=== PATIENT | female | born 1980 | race African-American/Black ===

== ENCOUNTER 2020-04-29 08:44 | Emergency (ER) | payer SELFPAY ==
--- NOTE | 2020-04-29 08:55 | NUR ---
called out to the lobby patient was not there
--- NOTE | 2020-04-29 09:19 | NUR ---
called no answer
--- NOTE | 2020-04-29 09:53 | Emergency Room Report ---
History of Present Illness General Chief Complaint: To Be Triaged Present Illness HPI Patient left without being seen prior to evaluation Medical Decision Making Diagnostic Impression: Primary Impression: jint pain Disposition: LEFT W/OUT BEING SEEN Condition: Unknown Karis Alonzo D.O. Apr 29, 2020 09:53
== END 2020-04-29 10:00 | disposition left against medical advice (07) ==
LOC: EMR 09:19
DX: M25.50 Pain in unspecified joint (principal); Z53.21 Procedure and treatment not carried out due to patient leaving prior to being seen by health care provider